=== PATIENT | male | born 1990 | race African-American/Black ===

== ENCOUNTER 2020-11-24 08:44 | Inpatient (IN) | payer OTHER ==
[2020-11-23 20:00] VITALS: BP 98/58
[~2020-11-24] VITALS: Ht 162.6 cm; Wt 167.8 kg
[2020-11-24 09:53] VITALS: BP 158/99
[2020-11-24 11:55] LABS: ABSOLUTE BASOPHILS 0.1 thou/uL (0.0-0.2); ABSOLUTE EOSINOPHILS 0.2 thou/uL (0.0-0.7); ABSOLUTE LYMPHOCYTES 1.5 thou/uL (0.8-5.3); ABSOLUTE MONOCYTES 0.7 thou/uL (0.0-1.2); ABSOLUTE NEUTROPHILS 6.1 thou/uL (1.6-8.1); BASOPHILS 1.3 %; EOSINOPHILS 2.3 %; HEMATOCRIT 44.6 % (42.0-52.0); HEMOGLOBIN 14.6 gm/dL (14.0-18.0); LYMPHOCYTES 17.4 %; MCHC 32.7 g/dL (28.0-37.0); MCV 88.4 fL (80.0-100.0); MONOCYTES 7.8 %; NUCLEATED RBCS 0 /100WBC; PLATELET COUNT* 236 thou/uL (150-400); POLYS 71.2 %; RBC 5.05 mil/uL (4.50-6.00); RDW-CV 14.5 % (10.5-14.5); WBC 8.5 thou/uL (4.0-11.0)
[2020-11-24 12:05] LABS: CALCIUM 9.2 mg/dL (8.5-10.1); CREATININE 1.4 mg/dL (0.6-1.3); POTASSIUM 4.6 mmol/L (3.5-5.1)
[2020-11-24 12:06] LABS: ALBUMIN 3.3 g/dL (3.4-5.0); TOTAL BILIRUBIN 0.3 mg/dL (<0.1-1.0); TOTAL PROTEIN 8.1 g/dL (6.4-8.2)
[2020-11-24 12:36] LABS: CHOLESTEROL 211 mg/dL (<200); HDL CHOLESTEROL 37 mg/dL (>40); LDL CHOLESTEROL 95 mg/dL (<100); SERUM ASSESSMENT Clear; TC:HDL 5.7 Ratio (Not establshd); TRIGLYCERIDE 397 mg/dL (<150); VLDL 79 mg/dL (<40)
--- NOTE | 2020-11-24 13:13 | EKG ---
[place] [address] ELECTROCARDIOGRAM REPORT Name: NOLANKEY JR Room: [place] [address] ADM IN [facility]#: [id number] Admission: 11/24/20 Attend Phys: Bart Pierce Discharge: Date of : 88 Date of Service: 11/24/20 1216 Report #: [id number] THIS REPORT FOR: //name// [facility] ED Test Date: 2020-11-24 Test Time: 12:16:20 Pat Name: KEY FRANCISCO Department: Room: [facility] Gender: M Route Delivery Driver: BEATRICE : 1990 Requested By: Quynh Lamb Order Number: [id number] MD: Baljit Zurita Measurements Intervals [facility] Rate: 77 P: 84 NE: 164 QRS: 63 QRSD: 104 T: 28 QT: 389 QTc: 441 Interpretive Statements Sinus rhythm ST elev, probable normal early repol pattern No previous ECG available for comparison Electronically Signed On 11-24-2020 13:12:57 CDT by Baljit Zurita [email or web address] <ELECTRONICALLY SIGNED> By: Baljit Zurita MD, [facility] 11/24/20 1312 1216 1216 Baljit Zurita MD, [facility] /EPI
[2020-11-24 14:05] LABS: URINE BILIRUBIN NEGATIVE (Negative); URINE BLOOD NEGATIVE (Negative); URINE CLARITY CLEAR; URINE COLOR YELLOW; URINE GLUCOSE-RANDOM 3+ (Negative); URINE KETONES NEGATIVE (Negative); URINE LEUKOCYTES-REFLEX NEGATIVE (Negative); URINE NITRITE-REFLEX NEGATIVE (Negative); URINE PROTEIN NEGATIVE (Negative); URINE UROBILINOGEN 0.2 E.U./dl (0.2-1.0)
[2020-11-24 15:39] VITALS: BP 174/98
[2020-11-24 18:50] VITALS: BP 155/90
--- NOTE | 2020-11-24 18:54 | NUR ---
pt admitted from ed department for increase thirst, urinating a lot, nausea and vomiting and a little bit of dizziness. pt has saline lock in his left ac with normal saline infusing without difficulty. pt admitted to the floor as a med surg pt.
[2020-11-25 01:15] VITALS: BP 133/68
[2020-11-25 04:55] VITALS: BP 136/79
[2020-11-25 05:43] LABS: HEMATOCRIT 41.5 % (42.0-52.0); HEMOGLOBIN 13.9 gm/dL (14.0-18.0); MCH 28.8 pg (26.0-34.0); MCHC 33.5 g/dL (28.0-37.0); RBC 4.82 mil/uL (4.50-6.00); WBC 7.5 thou/uL (4.0-11.0)
[2020-11-25 06:07] LABS: CALCIUM 8.6 mg/dL (8.5-10.1); CREATININE 0.9 mg/dL (0.6-1.3)
[2020-11-25 06:34] LABS: CHOLESTEROL 182 mg/dL (<200); HDL CHOLESTEROL 37 mg/dL (>40); LDL CHOLESTEROL 100 mg/dL (<100); TC:HDL 4.9 Ratio (Not establshd); TRIGLYCERIDE 226 mg/dL (<150); VLDL 45 mg/dL (<40)
[2020-11-25 06:35] LABS: SERUM ASSESSMENT Clear
[2020-11-25 07:09] LABS: GLYCOHEMOGLOBIN (HGB A1C) 13.6 % (4.8-5.6)
[2020-11-25 08:46] VITALS: BP 133/74
--- NOTE | 2020-11-25 14:23 | NUR ---
Pt is A&O. Resides at home with mom. Active and independent. Pt has a new diabetes dx. Pt is patient pay, but per Med Assist, Pt believes that he has health insurance and is contacting his employer. Per , dc meds will be contingent upon Pt's insurance coverage. Pt is over income for [place] [facility]. No DME. No hx of HH or SNF. Goal is home at wi. Anticipate dc tomorrow.
[2020-11-25 16:00] VITALS: BP 153/98
--- NOTE | 2020-11-25 18:14 | NUR ---
VERY PLEASANT AND OPEN TO NEW INFORMATION. WOULD VERY MUCH LIKE TO SPEAK TO [employer]. WENT OVER INSULIN AND BASICS OF DISEASE. GAVE HIMSELF INSULIN WITH EACH MEAL TODAY.
[2020-11-25 20:30] VITALS: BP 123/68
[2020-11-26 03:59] LABS: CALCIUM 8.5 mg/dL (8.5-10.1); CREATININE 1.1 mg/dL (0.6-1.3); POTASSIUM 4.4 mmol/L (3.5-5.1)
--- NOTE | 2020-11-26 05:20 | NUR ---
PT ALERT AND ORIENTED, AD MELANIE, ROOM AIR. PLEASANT, SLEPT WELL DID NOT ASK FOR ANYTHING ALL SHIFT. RECEIVED MEDS SCHEDULED. MED SURG STATUS.
[2020-11-26 10:00] VITALS: BP 123/74
[2020-11-26 11:20] VITALS: BP 123/74
--- NOTE | 2020-11-26 14:16 | NUR ---
Anticipate nj tomorrow. Regulate BS. Med Assist confirmed that Pt does not have insurance yet through his job. CM to provide [facility] info at [place].
[2020-11-26 16:20] VITALS: BP 133/78
--- NOTE | 2020-11-26 17:14 | NUR ---
ASSUMED PT CARE AT 0730. PT IS PLEASANTLY A&OX4. ASSESSMENT COMPLETED, PT WITH NO CONCERNS AT THIS TIME. DIABETIC EDUCATION OFFERED AND PT NOW SELF ADMINISTERING HIS INSULIN. PT VERBALIZES UNDERSTANDING OF IMPORTANCE OF MONITORING AND ADMINISTERING INSULIN TIMELY.
[2020-11-26 21:00] VITALS: BP 157/81
[2020-11-27 04:10] LABS: CALCIUM 9.1 mg/dL (8.5-10.1); CREATININE 1.1 mg/dL (0.6-1.3)
[2020-11-27 08:15] VITALS: BP 99/55
[2020-11-27] MEDS ORDERED: NOVOLIN 70100 UNIT/5 SUBQ (10:06)
[2020-11-27 11:08] VITALS: BP 99/55
--- NOTE | 2020-11-27 11:16 | NUR ---
ASSUMED CARE AT 0730. PT IS PLEASANTLY ALERT AND ORIENTED X4. ASSESSMENT COMPLETED. ACCUCHECK THIS AM 166. PT ADMINISTERED INSULIN AND CONTINUES TO DEMONSTRATE PROPER TECHNIQUE. ORDERS TO DISCHARGE TO HOME. IV DC'D AND ALL BELONGINGS WITH PT. EDUCATION GIVEN AND REVIEWED WITH PT. PT DEMONSTRATES AND VERBALIZES UNDERSTANDING. PT ASSISTED TO FRONT ENTRANCE VIA WC BY NURSING STAFF. PT LEFT WITH PARENTS VIA CAR AT APPROX. 1115.
== END 2020-11-27 12:57 | disposition home or self-care (01) | DRG 682 ==
LOC: M.ERS 08:44 → M.TBA-ER 12:19 → M.2W 15:49
PROVIDERS: Family Medicine; Nurse Practitioner Family; ADMIT Internal Medicine; ATTEND Internal Medicine
DX: N17.0 Acute kidney failure with tubular necrosis (principal); E11.10 Type 2 diabetes mellitus with ketoacidosis without coma; Z68.44 Body mass index [BMI] 60.0-69.9, adult; Z79.4 Long term (current) use of insulin; Z20.822 Contact with and (suspected) exposure to COVID-19; E66.01 Morbid (severe) obesity due to excess calories; E78.1 Pure hyperglyceridemia